=== PATIENT | male | born 2000 | race Hispanic/Latino ===

== ENCOUNTER 2021-05-30 09:32 | Emergency (ER) | payer SELFPAY ==
[~2021-05-30] VITALS: Ht 172.7 cm; Wt 95.0 kg
[2021-05-30 10:20] VITALS: BP 132/77
== END 2021-05-30 10:20 | disposition home or self-care (01) | DRG 605 ==
LOC: ED 09:32
PROC: 0HQKXZZ Repair Right Lower Leg Skin, External Approach (ICD-10-PCS; principal; 2021-05-30)
DX: S81.811A Laceration without foreign body, right lower leg, initial encounter (principal); W26.8XXA Contact with other sharp object(s), not elsewhere classified, initial encounter; Y92.89 Other specified places as the place of occurrence of the external cause; Y99.0 Civilian activity done for income or pay

== ENCOUNTER 2021-06-03 10:44 | Emergency (ER) | payer SELFPAY ==
[~2021-06-03] VITALS: Ht 172.7 cm; Wt 89.0 kg
[2021-06-03 11:02] VITALS: BP 145/96
[2021-06-03] MEDS ORDERED: CEPHALEXIN500 MG PO (11:02)
[2021-06-03] MEDS ORDERED: NO HOME MEDS (11:37)
== END 2021-06-03 11:38 | disposition home or self-care (01) | DRG 950 ==
LOC: ED 10:44
DX: S81.811D Laceration without foreign body, right lower leg, subsequent encounter (principal); X58.XXXD Exposure to other specified factors, subsequent encounter; F17.200 Nicotine dependence, unspecified, uncomplicated

== ENCOUNTER 2021-06-06 09:59 | Emergency (ER) | payer SELFPAY ==
[~2021-06-06] VITALS: Ht 172.7 cm; Wt 81.0 kg
[~2021-06-06 09:59] MED LIST: CEPHALEXIN500 MG PO; NO HOME MEDS
[2021-06-06 11:00] VITALS: BP 142/90
== END 2021-06-06 11:00 | disposition home or self-care (01) | DRG 950 ==
LOC: ED 09:59
DX: S81.811D Laceration without foreign body, right lower leg, subsequent encounter (principal); X58.XXXD Exposure to other specified factors, subsequent encounter; F17.210 Nicotine dependence, cigarettes, uncomplicated